=== PATIENT | female | born 1955 | race Caucasian/White ===

== ENCOUNTER → 2024-11-02 | Outpatient (CLI) | payer MEDICARE, BC, SELFPAY ==
--- NOTE | 2024-11-02 10:30 | XR_ITS ---
Examination: Breast ultrasound complete, bilateral Date and time of exam: November 02, 2024 1049 hours INDICATIONS: Microcalcifications upper outer right breast on mammogram January 11, 2022 Technique: Real-time grayscale ultrasonographic imaging bilateral breasts, including all 4 quadrants as well as nipple retroareolar and axillary regions. Findings: No cystic or solid mass involving either breast Bilateral retroareolar dilated ducts IMPRESSION: BI-RADS Category 2: Benign findings
--- NOTE | 2024-11-02 11:30 | XR_ITS ---
Examination: Screening digital mammography, bilateral Computer aided detection 3-D breast Tomosynthesis, bilateral Date and time of exam: November 02, 2024 at 1104 hours Compared to mammograms dating to December 11, 2019 Indication: Screening Technique: Nonmagnified MLO, CC views of the breasts to been obtained, reconstructed from 3-D Tomosynthesis images. R2 computer aided detection program utilized for evaluation of suspicious masses and/or abnormal calcifications. 3-D Tomosynthesis images obtained. Findings: The breasts are heterogeneously dense, which may obscure small masses Benign calcifications Small focus of microcalcifications upper outer right breast and upper outer left breast No suspicious masses Impression: BI-RADS Category 0: Incomplete: Need additional imaging evaluation Recommend follow-up magnification spot compression views of bilateral foci of microcalcifications as described above as well as bilateral breast sonography to complete the workup
== END | disposition home or self-care (01) ==
LOC: CDIM 10:23
PROVIDERS: Referring Provider Obstetrics & Gynecology; Visit Provider Obstetrics & Gynecology
DX: Z12.31 Encounter for screening mammogram for malignant neoplasm of breast (principal); R92.8 Other abnormal and inconclusive findings on diagnostic imaging of breast; R92.0 Mammographic microcalcification found on diagnostic imaging of breast
CPT/HCPCS: 76641; 77063; 77067

== ENCOUNTER → 2025-04-29 | Outpatient (CLI) | payer MEDICARE, BC, SELFPAY ==
[2025-04-29 12:06] LABS: Basophils # (Auto) 0.1 Thou/mm3 (0.0-0.2); Basophils % (Auto) 1 % (0-2.5); Eosinophils # (Auto) 0.2 Thou/mm3 (0.0-0.5); Eosinophils % (Auto) 3 % (0-10); Hematocrit 40.5 % (36.0-46.0); Hemoglobin 13.9 g/dL (12.0-16.0); Immature Granulocytes % (Auto) 0 % (0-0); Lymphocytes # (Auto) 1.5 Thou/mm3 (1.0-4.8); Lymphocytes % (Auto) 26 % (10-50); Mean Corpuscular HGB Conc 34.3 g/dl (31.0-37.0); Mean Corpuscular Volume 96 fL (80-100); Monocytes # (Auto) 0.6 Thou/mm3 (0.0-0.8); Monocytes % (Auto) 10 % (0-12); Neutrophils # (Auto) 3.6 Thou/mm3 (1.8-7.7); Neutrophils % (Auto) 60 % (37-80); Nucleated Red Blood Cell % 0 /100 WBC (0); Platelet Count 314 Thou/mm3 (140-440); RDW Standard Deviation 48.4 fL (36.4-46.3); Red Blood Count 4.21 Miln/mm3 (4.00-5.20); White Blood Count 5.9 Thou/mm3 (3.6-11.0)
[2025-04-29 12:18] LABS: Glucose Estimated Average 108 mg/dL (80-131); Hemoglobin A1C 5.4 % Hgb (4.8-6.0)
[2025-04-29 12:29] LABS: T4 (Thyroxine) 6.3 mcg/dL (4.5-10.9)
[2025-04-29 12:30] LABS: Alanine Aminotransferase 11 U/L (10-49); Albumin, Serum 4.2 gm/dL (3.4-4.8); Alkaline Phosphatase 52 U/L (46-116); Anion Gap 7 (7-16); Aspartate Amino Transferase 17 U/L (0-34); BUN/Creatinine Ratio 16 Ratio (12-20); Bilirubin,Total 0.4 mg/dL (0.3-1.2); Blood Urea Nitrogen 16 mg/dL (9-23); Calcium 8.7 mg/dL (8.3-10.6); Calcium (Corrected) 8.7 mg/dL (8.5-10.1); Carbon Dioxide 23.8 mMol/L (20.0-31.0); Cardiac Risk Estimate 3.5 RATIO (3.7-5.6); Chloride 111 mMol/L (98-107); Cholesterol 255 mg/dL (132-200); Globulin 2.1 gm/dL (2.3-3.5); Glucose 96 mg/dL (74-106); HDL Cholesterol 72 mg/dL (40-60); LDL Cholesterol,Calculated 162 mg/dL (0-130); Osmolality,Calculated 284 (275-295); Potassium 4.4 mMol/L (3.4-5.1); Sodium 142 mMol/L (136-145); Thyroid Stimulating Hormone 2.61 uIU/mL (0.55-4.78); Total Protein 6.3 gm/dL (5.7-8.2); Triglycerides 105 mg/dL (30-150); eGFR > 60 See Note
== END | disposition home or self-care (01) ==
LOC: COPL 11:32
PROVIDERS: PCP Student in an Organized Health Care Education/Training Program; Referring Provider Student in an Organized Health Care Education/Training Program; Visit Provider Student in an Organized Health Care Education/Training Program
DX: Z00.00 Encounter for general adult medical examination without abnormal findings (principal); J30.2 Other seasonal allergic rhinitis
CPT/HCPCS: 36415; 80053; 80061; 83036; 84436; 84443; 85025

== ENCOUNTER → 2025-11-16 | Outpatient (CLI) | payer MEDICARE, BC, SELFPAY | END | disposition home or self-care (01) | LOC: SLDO 12:13 | PROVIDERS: Referring Provider Student in an Organized Health Care Education/Training Program; Visit Provider Student in an Organized Health Care Education/Training Program | DX: R35.0 Frequency of micturition (principal) | CPT/HCPCS: 87077; 87086; 87186 ==